=== PATIENT | male | born 1995 | race Caucasian/White ===

== ENCOUNTER 2016-10-30 16:38 | Emergency (ER) | payer MEDICAID | END 2016-10-30 18:50 | disposition home or self-care (01) | LOC: ER 16:38 | DX: F41.9 Anxiety disorder, unspecified (principal); F32.9 Major depressive disorder, single episode, unspecified; F15.93 Other stimulant use, unspecified with withdrawal; F10.10 Alcohol abuse, uncomplicated; F11.10 Opioid abuse, uncomplicated; R74.0 Nonspecific elevation of levels of transaminase and lactic acid dehydrogenase [LDH] | CPT/HCPCS: 36415; 80053; 80307; 80320; 80329; 81003; 84439; 84443; 85025; 85610 ==